=== PATIENT | female | born 1995 | race Caucasian/White ===

== ENCOUNTER 2024-02-15 17:11 | Emergency (ER) | payer OTHER ==
[~2024-02-15] VITALS: Ht 154.9 cm; Wt 72.6 kg
[2024-02-15 17:47] VITALS: BP 114/86; TEMP 98.1; O2SAT 98
[2024-02-15] MEDS ORDERED: CIPR7.5D9 EACH EAR (17:57)
[2024-02-15] MEDS ORDERED: AMOX-430 PO (17:57)
== END 2024-02-15 18:08 | disposition home or self-care (01) ==
LOC: ER 17:11
DX: H92.03 Otalgia, bilateral (principal); Z88.8 Allergy status to other drugs, medicaments and biological substances